=== PATIENT | female | born 1995 | race Caucasian/White ===

== ENCOUNTER 2023-04-25 12:00 | Inpatient (IN) | payer MEDICAID ==
[~2023-04-25] VITALS: Ht 170.2 cm; Wt 60.8 kg
[2023-04-25] MEDS ORDERED: INFLUENZA VIRUS VACCINE QVS 2023-24 (6MO+)/PF 60 MCG/0.5 ML SYRINGE IM. ONE (17:15)
[2023-04-25] MEDS ORDERED: HALOPERIDOL 5 MG TABLET PO PRN (18:00)
[2023-04-25] MEDS ORDERED: ZOLPIDEM TARTRATE 10 MG TABLET PO PRN (18:00)
[2023-04-25 18:05] VITALS: BP 126/81; PULSE 92; RESP 18; TEMP 98; O2SAT 98
[2023-04-25] MEDS: LORazepam 2 MG TABLET PO PRN (18:22)
[2023-04-25] MEDS ORDERED: NICOTINE 21 MG/24 HOUR PATCH TD PRN (19:15)
[2023-04-25 20:15] VITALS: BP 121/78; PULSE 92; RESP 18; TEMP 97.5; O2SAT 98
[2023-04-26] MEDS ORDERED: MAGNESIUM HYDROXIDE SUSPENSION 30 ML UDCUP PO PRN (05:15)
[2023-04-26] MEDS ORDERED: BACITRACIN 28 GM OINTMENT TP PRN (05:15)
[2023-04-26] MEDS ORDERED: DOCUSATE SODIUM 100 MG CAPSULE PO PRN (05:15)
[2023-04-26] MEDS ORDERED: ACETAMINOPHEN 325 MG TABLET PO PRN (05:15)
[2023-04-26] MEDS ORDERED: ONDANSETRON HCL 4 MG TABLET PO PRN (05:15)
[2023-04-26] MEDS ORDERED: ALBUTEROL SULFATE HFA 90 MCG/PUFF 8 GM INHALER IH PRN (05:15)
[2023-04-26] MEDS ORDERED: MAG HYDROX/ALUMINUM HYD/SIMETH ES 30 ML SUSPENSION UDCUP PO PRN (05:15)
[2023-04-26] MEDS ORDERED: BENZOCAINE/MENTHOL LOZENGE PO PRN (05:15)
[2023-04-26] MEDS ORDERED: IBUPROFEN 600 MG TABLET PO PRN (05:15)
[2023-04-26] MEDS ORDERED: OMEPRAZOLE 20 MG CAPSULE PO PRN (05:15)
[2023-04-26] MEDS ORDERED: PETROLATUM,WHITE 28 GM JELLY TP PRN (05:15)
[2023-04-26] MEDS ORDERED: CloNIDine HCL 0.1 MG TABLET PO PRN (05:15)
[2023-04-26] MEDS ORDERED: LOPERAMIDE HCL 2 MG CAPSULE PO PRN (05:15)
[2023-04-26] MEDS: LORazepam 2 MG TABLET PO PRN (08:23)
[2023-04-26 08:30] VITALS: BP 124/82; PULSE 86; RESP 16; TEMP 98; O2SAT 99
[2023-04-26 08:48] LABS: BASOPHILS % (AUTO) 1.9 % (0.0-2.0); EOSINOPHILS % (AUTO) 5.3 % (1.0-6.0); HEMATOCRIT 41.5 % (36-46); HEMOGLOBIN 13.7 g/dL (12.0-16.0); LYMPHOCYTES # (AUTO) 1.5 K/uL (1.0-4.8); MEAN CORPUSCULAR HEMOGLOBIN 30.2 pg (26.0-34.0); MEAN CORPUSCULAR HGB CONC 33.1 G/dL (31.0-37.0); MEAN CORPUSCULAR VOLUME 91 fL (80-100); MONOCYTES # (AUTO) 0.3 K/uL (0.1-1.0); MONOCYTES % (AUTO) 5.4 % (2.0-9.0); NEUTROPHILS # (AUTO) 3.6 K/uL (1.8-7.7); NEUTROPHILS % (AUTO) 61.4 % (40.0-70.0); PLATELET COUNT (AUTO) 389 K/uL (150-450); RED BLOOD CELL COUNT(AUTO) 4.55 MIL/uL (4.00-5.20); RED CELL DISTRIBUTION WIDTH 13.2 % (11.5-14.5); WHITE BLOOD COUNT (AUTO) 5.9 K/uL (4.5-11.0)
[2023-04-26 09:28] LABS: ALANINE AMINOTRANSFERASE 63 U/L (12-78); ALBUMIN 3.8 g/dL (3.4-5.0); ALKALINE PHOSPHATASE 63 U/L (46-116); ANION GAP 8 mmol/L (8-16); ASPARTATE AMINOTRANSFERASE 30 U/L (15-37); BILIRUBIN,TOTAL 0.2 mg/dL (0.1-1.0); CALCIUM, TOTAL 9.1 mg/dL (8.8-10.5); CARBON DIOXIDE 26 mmol/L (22-29); CHLORIDE 103 mmol/L (98-107); CREATININE 0.67 mg/dL (0.60-1.30); FREE T4 (FREE THYROXINE) 0.76 ng/dL (0.76-1.46); GLOMERULAR FILTR. RATE CALC > 60 mL/min (>60); GLUCOSE,RANDOM 119 mg/dL (70-110); POTASSIUM 3.6 mmol/L (3.5-5.1); SODIUM SERUM 137 mmol/L (136-145); THYROID STIMULATING HORMONE 2.99 uIU/mL (0.36-3.74); TOTAL PROTEIN, SERUM 6.9 g/dL (6.4-8.2); UREA NITROGEN, BLOOD 9 mg/dL (7-18)
[2023-04-26] MEDS: DIVALPROEX SODIUM 500 MG DR TABLET PO SCH (17:50)
[2023-04-26] MEDS: RisperiDONE 1 MG TABLET PO SCH (17:50)
[2023-04-26] MEDS: LITHIUM CARBONATE 300 MG CAPSULE PO SCH (17:50)
[2023-04-26 20:20] VITALS: BP 122/73; PULSE 82; RESP 17; TEMP 97.8
[2023-04-27 07:07] LABS: HEPATITIS C AB (EIA) Non Reactive (Non Reactive)
[2023-04-27] MEDS: LORazepam 2 MG TABLET PO PRN (08:22)
[2023-04-27] MEDS: DIVALPROEX SODIUM 500 MG DR TABLET PO SCH (08:22)
[2023-04-27] MEDS: RisperiDONE 1 MG TABLET PO SCH (08:22)
[2023-04-27] MEDS: LITHIUM CARBONATE 300 MG CAPSULE PO SCH (08:22)
[2023-04-27 08:43] VITALS: BP 129/81; PULSE 72; RESP 18; TEMP 98.1; O2SAT 97
[2023-04-27] MEDS ORDERED: DIVA-112 PO (11:43)
[2023-04-27] MEDS ORDERED: RISP-31 PO (11:44)
[2023-04-27] MEDS ORDERED: LITH300C3 PO (11:44)
== END 2023-04-27 14:30 | disposition home or self-care (01) | DRG 753 ==
LOC: B3A 16:32
PROVIDERS: ADMIT Psychiatry & Neurology Psychiatry; ATTEND Psychiatry & Neurology Psychiatry
DX: F31.9 Bipolar disorder, unspecified (principal); R45.851 Suicidal ideations; G47.00 Insomnia, unspecified; K59.00 Constipation, unspecified; F41.9 Anxiety disorder, unspecified; F10.90 Alcohol use, unspecified, uncomplicated; Z72.0 Tobacco use
CPT/HCPCS: 80053; 84439; 84443; 85025; 86803; 87340